=== PATIENT | female | born 2000 | race Caucasian/White ===

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

== ENCOUNTER 2023-03-09 17:49 | Emergency (ER) | payer OTHER | END 2023-03-09 18:19 | disposition home or self-care (01) | LOC: JD.ED 17:49 → MERGE 17:49 → JD.ED 18:19 | DX: S61.102A Unspecified open wound of left thumb with damage to nail, initial encounter (principal); W26.9XXA Contact with unspecified sharp object(s), initial encounter | CPT/HCPCS: 99282; 99283 ==

== ENCOUNTER 2024-02-04 16:57 | Emergency (ER) | payer OTHER ==
[2024-02-04] MEDS: Sodium Chloride 0.9% 1,000 ML IV ONE (17:39)
[2024-02-04] MEDS: Ondansetron 4 MG/2 ML SDV IVPUSH ONE (17:40)
[2024-02-04 18:02] LABS: BASOPHILS PERCENT AUTO 0.5 % (0.0-1.0); EOSINOPHILS PERCENT AUTO 0.3 % (0.0-6.0); HEMATOCRIT 41.9 % (37.0-47.0); HEMOGLOBIN 14.4 gm/dl (12.0-16.0); IMMATURE GRAN ABSOLUTE AUTO 0.02 K/mm3 (0.00-0.05); IMMATURE GRAN PERCENT AUTO 0.3 % (0.0-0.4); LYMPHOCYTES ABSOLUTE AUTO 0.3 K/mm3 (1.0-4.8); LYMPHOCYTES PERCENT AUTO 4.5 % (24.0-44.0); MEAN CORPUSCULAR HEMOGLOBIN 29.4 pg (28.0-32.0); MEAN CORPUSCULAR HGB CONC 34.4 g/dl (32.0-36.0); MEAN CORPUSCULAR VOLUME 85.5 fl (83.0-99.0); MEAN PLATELET VOLUME 9.8 fl (9.4-12.3); MONOCYTES ABSOLUTE AUTO 0.5 K/mm3 (0.0-0.8); MONOCYTES PERCENT AUTO 7.3 % (0.0-8.0); NEUTROPHILS ABSOLUTE AUTO 5.6 K/mm3 (1.8-7.7); NEUTROPHILS PERCENT AUTO 87.1 % (41.0-71.0); PLATELET COUNT,PLT 251 K/mm3 (150-400); WHITE BLOOD CELL COUNT,WBC 6.41 K/mm3 (3.9-11.3)
[2024-02-04 18:24] LABS: A/G RATIO 1.4 (1-2); ALBUMIN 4.2 g/dl (3.4-5.0); ANION GAP 11.9 (5-15); BILIRUBIN TOTAL 1.1 mg/dL (0.2-1.0); C-REACTIVE PROTEIN 6.48 mg/dL (<0.30); CALCIUM 8.9 mg/dL (8.5-10.1); CREATININE 0.8 mg/dL (0.55-1.02); EST CRCL DRUG DOSING (CG) 96.73 mL/min; POTASSIUM,K 3.9 mEq/L (3.5-5.1); PROTEIN TOTAL,TP 7.2 g/dl (6.4-8.2)
[2024-02-04 18:38] LABS: CORONAVIRUS COVID-19 NAA NEGATIVE (NEGATIVE); INFLUENZA A NAA NEGATIVE (NEGATIVE); RESPIRATORY SYNCYTIAL VIR NAA NEGATIVE (NEGATIVE)
== END 2024-02-04 19:00 | disposition home or self-care (01) ==
LOC: JD.ED 16:57
DX: R50.9 Fever, unspecified (principal); R11.2 Nausea with vomiting, unspecified; Z88.0 Allergy status to penicillin; Z91.048 Other nonmedicinal substance allergy status
CPT/HCPCS: 0241U; 36415; 80053; 85025; 86140; 96361; 96374; 99284; J2405; J7030; 99283